=== PATIENT | male | born 1960 | race Hispanic/Latino ===

== ENCOUNTER 2025-02-12 15:17 | Emergency (ER) | payer BC ==
[~2025-02-12] VITALS: Ht 167.6 cm; Wt 86.2 kg
--- NOTE | 2025-02-12 15:33 | ERN ---
ED Note History of Present Illness Stated Complaint: FLU LIKE SYMPTOMS Chief Complaint: Flu Symptoms Time Seen by MD: 15:21 Dictation: PATIENT IS A 64-YEAR-OLD MALE WHO JUST GOT INTO [place]OWN FROM [facility] WITH COMPLAINTS OF FLU-LIKE SYMPTOMS TO INCLUDE BODY ACHES, CLEAR RUNNY NOSE SORE THROAT. HE STATES HE HAS HAD NAUSEA VOMITING X4, NO DIARRHEA NO LOSS OF TASTE OR SMELL. HE ALSO STATES THAT HE HAS BURNING URINATION HE HAS HAD FOR TWO DAYS. HE DENIES ANY CHRONIC COMORBIDITIES. Allergies: Coded Allergies: ibuprofen (Unverified Allergy, Unknown, 02/12/25) Past Medical History Past Medical History: Hypertension Surgical History: Cholecystectomy Surgical History Other: KIDNEY SX, RN Note Reviewed/Agreed w/PFSH: Yes Review of System Dictation CONSTITUTIONAL: NEGATIVE EXCEPT FOR HPI FEVER CHILLS HEAD/FACE: NEGATIVE EXCEPT FOR HPI EENT: NEGATIVE EXCEPT FOR HPI CLEAR RHINITIS WITH SORE THROAT RESPIRATORY: NEGATIVE EXCEPT FOR HPI GASTROINTESTINAL/ABDOMINAL: NEGATIVE EXCEPT FOR HPI NAUSEA VOMITING X4 GENITOURINARY: NEGATIVE EXCEPT FOR HPI MUSCULOSKELETAL: NEGATIVE EXCEPT FOR HPI INTEGUMENTARY: NEGATIVE EXCEPT FOR HPI NEUROLOGICAL/PSYCH: NEGATIVE EXCEPT FOR HPI HEMATOLOGIC/LYMPHATIC: NEGATIVE EXCEPT FOR HPI ALL SYSTEMS NEGATIVE, EXCEPT NOTED ABOVE. 13 POINT REVIEW OF SYSTEMS ASSESSED AND ALL NEGATIVE EXCEPT FOR ABOVE. Initial Vital Sign VS Vital Signs Date Time Temp Pulse Resp B/P (MAP) Pulse Ox O2 Delivery O2 Flow Rate FiO2 02/12/25 15:18 100.4 88 20 128/74 97 Room Air Physical Exam Dictation VITAL SIGNS REVIEWED GENERAL APPEARANCE: ALERT, ORIENTED X 3, MILD ACUTE DISTRESS, WELL DEVELOPED, NOURISHED. HEAD AND FACE: NON-TRAUMATIC. EYES: PERRL, PINK CONJUNCTIVAS, EYELID NO TRAUMA, ANTERIOR CHAMBER WITH ARCUS SENILIS. EARS: PINNAS INTACT AND NO SIGNS OF TRAUMA OR ERYTHEMA EAR CANALS CLEAR AND NO DISCHARGE TM NO ERYTHEMA NOSE: NO DISCHARGE, MILD PHARYNGEAL ERYTHEMA, TONSILS NO EXUDATES, NO ABSCESSES NOTED, MUCOUS MEMBRANE MOIST UVULA MIDLINE VOICE IS CLEAR NECK: SUPPLE, NON-TENDER, NO THYROMEGALY, NO MASSES, NO JVD, NO BRUITS BREAST:DEFERRED CHEST:NO TENDERNESS, NO CREPITUS, NO PARADOXICAL MOVEMENT, NO RETRACTIONS LUNGS:CLEAR, WELL-VENTILATED, SYMMETRIC, NO RALES, NO WHEEZING, NO RHONCHI, NO STRIDOR, GOOD BREATH SOUNDS BILATERALLY HEART: REGULAR RATE, REGULAR RHYTHM, NO MURMUR, NO GALLOPS VASCULAR: NO PERIPHERAL EDEMA, ABDOMEN: SOFT, POSITIVE BOWEL SOUNDS, NONDISTENDED, NO GUARDING, NONTENDER, NO REBOUND, NO MASSES NO HEPATOMEGALY, NO SPLENOMEGALY, NO HINES'S SIGN, NO HERNIAS. RECTAL: DEFERRED GENITAL: DEFERRED NEUROLOGICAL: NORMAL SPEECH, MOTOR FUNCTION INTACT, SENSORY FUNCTION INTACT MUSCULOSKELETAL: NECK NONTENDER, FULL RANGE OF MOTION, BACK NONTENDER, FULL RANGE OF MOTION, EXTREMITIES: NONTENDER, FULL RANGE OF MOTION SKIN: COLOR PINK, DRY, NO TURGOR, NO RASH, NO LACERATIONS, NO ABRASIONS, NO CONTUSIONS. LYMPHATIC: DEFERRED Results (Laboratory/Radiology) Laboratory/Radiology Laboratory Tests Test 02/12/25 15:23 02/12/25 15:58 Urine Color YELLOW (YELLOW) Urine Appearance CLOUDY (CLEAR) H Urine pH 6.0 (5.0-8.0) Urine Specific [place] 1.028 (1.001-1.031) Urine Protein 70 mg/dL (NEGATIVE) H Urine Glucose (UA) 50 mg/dL (NEGATIVE) H Urine Ketones 5 mg/dL (NEGATIVE) H Urine Occult Blood MODERATE (NEGATIVE) H Urine Nitrate NEGATIVE (NEGATIVE) Urine Bilirubin NEGATIVE mg/dL (NEGATIVE) Urine Urobilinogen 0.2 mg/dL (0.2-1.0) Urine Leukocyte Esterase 500 Shayla/uL (NEGATIVE) H Urine RBC 11-25 /HPF (0-1) H Urine WBC 26-50 /HPF (0-1) H Urine Squamous Epithelial Cells Rare /HPF (0-2) Urine Bacteria Few /HPF (None Seen) Influenza Type A Antigen Negative For Type A Influenza Type B Antigen Negative For Type B SARS-CoV-2 Antigen (Rapid) PRESUMPTIVE NEGATIVE Group A Streptococcus Rapid negative (NEGATIVE) Labs Reviewed?: Yes ED Course ED Course Orders Procedure Category Date Status Time Rapid (Group A Strep) LAB 02/12/25 Complete 15:29 Covid19 (Sars Antigen LAB 02/12/25 Complete Rapid) 15:29 Influenza Type A & B, LAB 02/12/25 Complete Rapid 15:29 Urinalysis Profile LAB 02/12/25 Complete 15:29 Acetaminophen 500mg PHA 02/12/25 In Process Tab (Tylenol 500mg T 15:30 Ondansetron Odt 4mg PHA 02/12/25 In Process Tab (Zofran 4mg Odt) 15:30 Culture Urine ROGERIO 02/12/25 In Process 16:44 Amox/Clav 875/125mg PHA 02/12/25 In Process Tab (Augmentin 875-1 17:00 Current Medications Medications (Trade) Dose Ordered Sig/Roger Route PRN Reason Start Time Stop Time Status Last Admin Dose Admin Acetaminophen (TYLenol 500MG TAB) 1,000 mg ONCE PO 02/12/25 15:30 02/12/25 19:30 02/12/25 15:51 Amoxicillin/ Clavulanate Potassium (Augmentin 875-125 Tablet) 1 each ONCE PO 02/12/25 17:00 02/12/25 21:00 Ondansetron HCl (zoFRAN 4MG ODT) 4 mg ONCE SL 02/12/25 15:30 02/12/25 19:30 02/12/25 15:51 Vital Signs Date Time Temp Pulse Resp B/P (MAP) Pulse Ox O2 Delivery O2 Flow Rate FiO2 02/12/25 15:51 100.4 02/12/25 15:18 100.4 88 20 128/74 97 Room Air 1732/SPOKE TO PATIENT AT LENGTH REGARDING CLINICAL FINDINGS. HE STATES HE HAS A HAD MULTIPLE URINARY TRACT INFECTIONS THIS YEAR AND WAS SEEN BY A UROLOGIST IN HIS [place] OF [facility] AND HAD A CYSTOSCOPY DONE. STATES HIS DOCTOR NEVER TREATS THE URINARY TRACT INFECTIONS AND SAID HIS WAITED UNTIL AFTER YOUR UROLOGISTS APPOINTMENT. PATIENT IS AWARE HE WILL BE TREATED WITH THE AUGMENTIN AND HE RETURNS [place] IN THE NEXT TWO DAYS TO FOLLOW UP WITH HIS DOCTOR. Medical Decision Making MDM MEDICAL DISCHARGE MAKING BASED ON SWABS FOR FLU COVID AND STREP AND UA FOR DYSURIA. ALL SWABS NEGATIVE PATIENT HAS A ACUTE CYSTITIS WITH HEMATURIA AUGMENTIN 875 WAS PRESCRIBED AND 1ST DOSE GIVEN PATIENT IS GOING BACK HOME TO [facility] TOMORROW WITH A PRESCRIPTION FOR AUGMENTIN FOR SEVEN MORE DAYS HE IS AWARE TO SEE HIS PRIMARY CARE DOCTOR IN [place] FOR FOLLOW UP DX & DISP Disposition: Discharge Departure Impression: Primary Impression: Acute cystitis with hematuria Additional Impression: Fever Condition: Stable Scripts Ondansetron (Ondansetron Odt) 4 Mg Tab.rapdis 4 MG PO Q6HPRN PRN for nausea, #16 TAB 0 Refills Prov: EDISON MCKENZIE 02/12/25 Amoxicillin/Potassium Clav (Amox Tr-K Clv 875-125 mg Tab) 875 Mg-125 Mg Tablet 1 EACH PO BID for 7 Days, #14 TAB 0 Refills Prov: EDISON MCKENZIE 02/12/25 Additional Instructions: FOLLOW-UP WITH PRIMARY CARE PROVIDER IN 1 TO 2 DAYS. TAKE MEDICATIONS DIRECTED HERE IN THE EMERGENCY ROOM. OKAY TO CONTINUE HOME MEDICATIONS UNLESS OTHERWISE DISCUSSED DURING YOUR VISIT IN THE EMERGENCY ROOM TODAY. RETURN TO YOUR NEAREST EMERGENCY ROOM IF SYMPTOMS WORSEN OR IF THERE IS NO IMPROVEMENT. CALL 911 IF YOU NEED IMMEDIATE ASSISTANCE. TAKE TYLENOL OR MOTRIN [id number] TER NEEDED AND IF NO CONTRAINDICATIONS ARE PRESENT. INCREASE ORAL HYDRATION. A WOUND CULTURE OR URINE CULTURE WAS ORDERED HERE IN THE EMERGENCY ROOM DEPARTMENT PLEASE FOLLOW-UP WITH PRIMARY CARE PROVIDER AND ADVISE THEM TO GET REPEAT PORTS FROM OUR FACILITY. IF YOU HAD ANY DARCI WRAP/SPLINTS THAT WERE APPLIED HERE, PLEASE DO NOT REMOVE THEM UNTIL YOU SEE YOUR PRIMARY CARE OR SP ECIALTY. TAKE AUGMENTIN DIRECTED UNTIL GONE. FOLLOW UP WITH THE YOUR PRIMARY CARE DOCTOR WHEN YOU RETURN TO [facility] IN THE NEXT 48 HOURS FOR REFERRAL BACK TO UROLOGY INCREASE YOUR WATER INTAKE. Referrals: SELF,REFERRAL (PCP) Time of Disposition: 17:34 I have reviewed the case, and I agree with, Diagnosis and Plan EDISON MCKENZIE Feb 12, 2025 15:32
[2025-02-12 15:51] VITALS: TEMP 100.4
[2025-02-12 16:31] LABS: COVID19 (SARS ANTIGEN RAPID) PRESUMPTIVE NEGATIVE (NEGATIVE); INFLUENZA TYPE A Negative For Type A (NEGATIVE); INFLUENZA TYPE B Negative For Type B (NEGATIVE)
[2025-02-12 16:41] LABS: APPEARANCE,URINE CLOUDY (CLEAR); GLUCOSE, URINE (UA) 50 mg/dL (NEGATIVE); LEUKOCYTE ESTERASE ,URINE 500 Leu/uL (NEGATIVE); NITRATE,URINE NEGATIVE (NEGATIVE); OCCULT BLOOD,URINE MODERATE (NEGATIVE)
[2025-02-12 16:43] LABS: ADD UA MICROSCOPIC YES
[2025-02-12 16:46] LABS: RAPID GROUP A STREP negative (NEGATIVE)
[2025-02-12 16:52] LABS: SQUAMOUS EPITHELIAL CELL,UR Rare /HPF (0-2)
[2025-02-12] MEDS ORDERED: AMOX1TAB16 PO (17:35)
[2025-02-12] MEDS ORDERED: ONDA-243 PO (17:36)
[2025-02-12] MEDS: AMOX/CLAV 875/125MG TAB PO SCH (17:39)
[2025-02-12 18:10] VITALS: BP 143/70; PULSE 81; RESP 18; TEMP 102; O2SAT 97
--- NOTE | 2025-02-15 10:58 | NUR ---
REGARDING URINE CULTURE ESBL: DR WAHL MADE AWARE. PRESCRIPTION CALLED IN TO PATIENT'S PREFERRED PHARMACY- [facility]ACK[facility] Q24H X2. PATIENT MADE AWARE.
== END 2025-02-12 18:25 | disposition home or self-care (01) ==
LOC: EDH 15:17
DX: N30.01 Acute cystitis with hematuria (principal); R11.2 Nausea with vomiting, unspecified; I10 Essential (primary) hypertension; Z88.6 Allergy status to analgesic agent; Z90.49 Acquired absence of other specified parts of digestive tract; Z20.822 Contact with and (suspected) exposure to COVID-19
CPT/HCPCS: 81001; 87086; 87186; 87426; 87804; 87880; 99283